=== PATIENT | male | born 1990 | race Caucasian/White ===

== ENCOUNTER 2024-11-04 15:23 | Emergency (ER) | payer BC, SELFPAY ==
--- NOTE | ~2024-11-04 | CT_ITS ---
EXAMINATION: CT lumbar spine wo con DATE: 11/04/2024 21:46 INDICATION: Low back pain radiating down the left leg. TECHNIQUE: Computed tomography (CT) of the lumbar spine was performed without intravenous contrast. Automated exposure control and iterative reconstruction technique were employed. The dose-length product was 399.48 mGy-cm. COMPARISON: None FINDINGS: There is a 3 mm stone in left kidney. There is 11 degrees levoscoliosis of lumbar spine. Vertebral body heights are normal. There is mildly decreased disc height at L3-L4 and L4-L5. The following disc levels are specifically discussed: L1-L2: The disc does not extend beyond the endplate margin. There is no facet joint osteoarthritis. There is no neural foraminal stenosis. There is no central canal stenosis. L2-L3: The disc is bulging. There is mild bilateral facet joint osteoarthritis. There is mild right neural foraminal stenosis. There is mild central canal stenosis. L3-L4: The disc is bulging. There is mild right facet joint osteoarthritis. There is mild bilateral neural foraminal stenosis. There is mild central canal stenosis. L4-L5: The disc is bulging. There is mild bilateral facet joint osteoarthritis. There is mild bilateral neural foraminal stenosis. There is mild central canal stenosis. L5-S1: The disc is bulging with superimposed left central extrusion There is moderate bilateral facet joint osteoarthritis. There is mild bilateral neural foraminal stenosis. There is mild central canal stenosis. There is moderate stenosis of left lateral recess. IMPRESSION: 1. Extrusion at L5-S1 with moderate stenosis of left lateral recess and mass effect on left S1 nerve root. Reviewed, dictated and finalized at location E. IMPRESSION: 1. Extrusion at L5-S1 with moderate stenosis of left lateral recess and mass ef fect on left S1 nerve root.
[2024-11-04 15:36] VITALS: BP 127/86; PULSE 123; RESP 16; TEMP 36.6; O2SAT 97
--- NOTE | 2024-11-04 19:37 | ED_ITS ---
HPI - Back Pain/Injury General Chief Complaint: Extremity Injury, Lower Stated Complaint: left leg pain Time Seen by Provider: 11/04/24 18:38 Source: patient Mode of arrival: ambulatory Limitations: no limitations History of Present Illness HPI Narrative: This is a 34-year-old male that presents emergency department for low back pain. Ongoing over the last month. Reports radiation down the left leg. Denies sad dle anesthesia, bowel/bladder incontinence. Related Data Allergies Allergy/AdvReac Type Severity Reaction Status Date / Time No Known Allergies Allergy Verified 11/04/24 15:36 Review of Systems Review of Systems: All systems reviewed & are unremarkable except as noted in HPI and below PMFSH Social History Social History (Updated 11/04/24 @ 19:38 by Leonora Murrieta PA-C) Substance use: current Exam Narrative: GENERAL: Well-appearing, well-nourished, and in no acute distress. HEAD: Normocephalic, atraumatic. EYES: EOMI. CHEST: Clear to auscultation. No respiratory distress. No wheezes rales or rhonchi HEART: Regular rate and rhythm. No murmur heard. Normal peripheral pulses. BACK: No midline spinal tenderness EXTREMITIES: Normal range of motion. No edema. Strength equal in bilateral lower extremities (5/5). Normal DP pulses SKIN: Warm, dry, no rash. NEURO: No focal deficits. Alert and oriented x3. PSYCH: Normal mood and affect Course Course Emergency Course: Patient did not want to wait for imaging results. Will be signing out AMA. Given the risks of doing so Vital Signs Vital signs: Vital Signs Temperature 97.9 F 11/04/24 15:36 Pulse Rate 123 H 11/04/24 15:36 Respiratory Rate 16 11/04/24 15:36 Blood Pressure 127/86 11/04/24 15:36 Pulse Oximetry 97 11/04/24 15:36 Oxygen Delivery Room Air 11/04/24 15:36 Temperature 97.9 F 11/04/24 15:36 Pulse Rate 123 H 11/04/24 15:36 Respiratory Rate 16 11/04/24 15:36 Blood Pressure 127/86 11/04/24 15:36 Pulse Oximetry 97 11/04/24 15:36 Oxygen Delivery Room Air 11/04/24 15:36 MDM - Back Pain/Injury Differential Diagnosis Differential diagnosis: Likely lumbar radiculopathy, sciatica and strain of lumbar region Critical Care Time Critical Care Time Critical Care Time: No Discharge Plan Discharge Clinical Impression: Low back pain Qualifiers: Chronicity: chronic Back pain laterality: left Sciatica presence: with sciatica Sciatica laterality: sciatica of left side Qualified Code(s): M54.42 - Lumbago with sciatica, left side Patient Disposition: Left Against Medical Advice Condition: Guarded Prognosis Instructions: Lumbar Radiculopathy (ED) Additional Instructions: Return to the ER if you experience weakness, numbness, bowel/bladder incontinence, or any other symptoms that are concerning to you Rest, use ice/heat, take anti-inflammatories (Aleve, Ibuprofen, Naproxen, etc) or Tylenol as needed for pain Follow up with your primary care doctor Patient Language: Swedish Follow-up/Referrals: PHYSICIAN NOT ON STAFF,NONSTAFF [Primary Care Provider]
--- OUTSIDE RECORDS SUMMARY | 2024-11-04 19:38 | XMS_ITS | Patient Health Record ---
Author Organization [facility] Address [address] [place] [address] Care Team Providers Care Meteorological Engineer Name Role Phone José Luis Arriola Unavailable [phone] Rodo Owens Unavailable Unavailable Reason For Referral No Information Medications Medication SIG (Take, Route, Frequency, Duration) Notes Start Date End Date Status Gabapentin Active Social History Tobacco Use: Social History Observation Description Date Details (start date - stop date) Current Smoker NA - NA Tobacco Use/Smoking Question Answer Notes Are you a current smoker How often do you smoke cigarettes? every day Tobacco use other than smoking: Question Answer Notes Are you an other tobacco user? No Problems Problem Type SNOMED Code ICD Code Onset Dates Problem Status W/U Status Risk Notes Problem Fear of medical treatment (205094774) Fear of injections and transfusions (F40.231) Active confirmed Problem Cervical radiculopathy (71504120) Radiculopathy, cervical region (M54.12) Active confirmed Problem Displacement of cervical intervertebral disc without myelopathy (25598080) Other cervical disc displacement at C6-C7 level (M50.223) Active confirmed Plan Of Treatment No Information Insurance Providers Payer Name Payer Address Payer Phone Subscriber Number Group Number Insured Name Patient Relationship to Insured Coverage Start Date Coverage End Date [facility] [address] [place] [phone] [id number] Ghulam Menjivar Self - patient is the insured Medical (General) History Medical History History ICD Code depression anxiety alcoholism drug addiction Surgical History Surgery Date(Month/Year)
--- OUTSIDE RECORDS SUMMARY | 2024-11-04 19:38 | XMS_ITS | Clinical Summary ---
Author Organization [facility] Address [address] [place] [address] Phone Care Team Providers Care Mycology Teacher Name Role Phone MelJalen ANGELY Primary Care Provider [phone] Allergies No known active allergies Medications tiZANidine (ZANAFLEX) 4 mg TabletIndicatio ns:Radicular pain in left arm Take 1 Tablet (4 mg) by mouth every 6 hours as needed for Pain. 30 Tablet 11/13/2019 Active diclofenac potassium (CATAFLAM) 50 mg Tablet Take 1 Tablet (50 mg) by mouth 2 times daily. 60 Tablet 11/24/2019 Active gabapentin (NEURONTIN) 100 mg capsule Take 1 Capsule (100 mg) by mouth 3 times daily. 90 Capsule 12/07/2019 Active Active Problems Problem Noted Date Diagnosed Date History of heroin abuse 11/24/2019 Chest pain Encounters Date Type Department Care Team Description 10/30/2024 1:45 PM CDT Office Visit [facility] [address] [place] [address] Vijaya Balderrama FNP Pain of left lower extremity (Primary Dx); History of herniated intervertebral disc 09/19/2024 External Device Data [facility] ABSTRACTION Provider, Abstract from Last 3 Months Immunizations Immunization Administration Dates Next Due Influenza Seasonal Unspecified Formulation IM Social History Tobacco Use Types Packs/Day Years Used Date Smoking Tobacco: Every Day Cigarettes Last attempted to quit: 08/14/2019 Smokeless Tobacco: Never Alcohol Use Standard Drinks/Week Comments Not Currently 0 (1 standard drink = 0.6 oz pur e alcohol) Feeling Safe Answer Date Recorded Within the last year, have y ou been afraid of your partner or ex-partner? Patient declined 11/08/2019 Within the last year, have y ou been humiliated or emotionally abused in other ways by your partner or ex-partner? Patient declined 11/08/2019 Within the last year, have y ou been kicked, hit, slapped, or otherwise physically hurt by your partner or ex-partner? Patient declined 11/08/2019 Within the last year, have y ou been raped or forced to have any kind of sexual activity by your partner or ex-partner? Patient declined 11/08/2019 Social Connections Answer Date Recorded In a typical week, how many times do you talk on the phone with family, friends, or neighbors? Patient declined 11/08/2019 How often do you get togethe r with friends or relatives? Patient declined 11/08/2019 How often do you attend synagogue or adventist serv ices? Patient declined 11/08/2019 Do you belong to any clubs o r organizations such as synagogue groups, unions, fraternal or athletic groups, or school groups? Patient declined 11/08/2019 How often do you attend meet ings of the clubs or organizations you belong to? Patient declined 11/08/2019 Are you , , di vorced, , never , or living with a partner? Patient declined 11/08/2019 Financial Resource Strain Answer Date R ecorded How hard is it for you to pa y for the very basics like food, housing, medical care, and heating? Patient declined 11/08/2019 Food Insecurity Answer Date Recorded Within the past 12 months, y ou worried that your food would run out before you got the money to buy more. Patient declined Within the past 12 months, t he food you bought just didn't last and you didn't have money to get more. Patient declined Transportation Needs Answer Date Record ed In the past 12 months, has l ack of transportation kept you from medical appointments or from getting medications? Patient declined 11/08/2019 In the past 12 months, has l ack of transportation kept you from meetings, work, or from getting things needed for daily living? Patient declined 11/08/2019 Sex and Gender Information Value Date Recorded Sex Assigned at Not on file Legal Sex Male 11:55 AM CDT Gender Identity Not on file Sexual Orientation Not on file Last Filed Vital Signs Vital Sign Reading Time Taken Comments Blood Pressure 117/80 10/30/2024 1:47 PM CDT Pulse 147 10/30/2024 1:47 PM CDT Temperature 36.5 C (97.7 F) 10/30/2024 1:47 PM CDT Respiratory Rate 16 10/30/2024 1:47 PM CDT Oxygen Saturation 97% 10/30/2024 1:47 PM CDT Inhaled Oxygen Concentration - - Weight 81.6 kg (180 lb) 10/30/2024 1:47 PM CDT Height 180.3 cm (5' 11) 10/30/2024 1:47 PM CDT Body Mass Index 25.1 10/30/2024 1:47 PM CDT Plan of Treatment Health Maintenance Due Date Last Done Comments DTAP/TDAP/TD VACCINES (1 - Tdap) 06/19/2011 HEPATITIS B VACCINES (1 of 3 - 19+ 3-dose series) 06/19/2011 HPV VACCINES (1 - 3-dose SCDM series) 06/19/2019 Preventative Visit- Commercial 02/16/2024 INFLUENZA VACCINE (#1) 2024 12/28/2019 COVID-19 Vaccine (2024- season) 10/16/202403/2020, 02/28/2020 Insurance [facility] [place] [id number] [facility] [employer] Care Teams Mycology Teacher Relationship Specialty Start Date End Date Jalen Leal APN [address] [place] [address] PCP - General Nurse Practitioner Adult Health 11/13/19
== END 2024-11-05 00:22 | disposition left against medical advice (07) ==
PROVIDERS: Emergency Provider Physician Assistant
DX: M54.42 Lumbago with sciatica, left side (principal)
CPT/HCPCS: 72131; 99284